=== PATIENT | female | born 1985 | race Caucasian/White ===

== ENCOUNTER 2024-05-13 22:06 | Emergency (ER) | payer OTHER ==
[~2024-05-13] VITALS: Ht 165.1 cm; Wt 79.0 kg
[2024-05-13] MEDS ORDERED: MAGNESIUM 4 G PREMIX 100 ML IV ONE (22:15)
[2024-05-13 22:37] LABS: BASOPHILS % 0.8 % (0.0-2.0); DIFFERENTIAL COMMENT 0; EOSINOPHILS % 1.5 % (0.0-5.0); HEMATOCRIT. 42.7 % (36.0-48.0); HEMOGLOBIN. 13.3 g/dL (12.0-16.0); LYMPHOCYTES % 38.4 % (20.0-50.0); MEAN CORPUSCULAR HEMOGLOBIN 31.5 pg (28.0-32.0); MEAN CORPUSCULAR HGB CONC 31.2 g/dL (31.0-37.0); MEAN PLATELET VOLUME 10.8 fl (7.4-10.4); MONOCYTES % 8.1 % (2.0-8.0); NEUTROPHILS % 51.2 % (40.0-76.0); PLATELET 313 x1000/uL (130-400); RED BLOOD CELL COUNT 4.22 mill/uL (4.2-5.4); RED CELL DISTRIBUTION WIDTH 13.9 % (11.6-14.6); WHITE BLOOD COUNT 27.4 x1000/uL (4.5-11.0)
[2024-05-13] MEDS: MAGNESIUM 4 G PREMIX 100 ML IV NR (22:42)
[2024-05-13] MEDS: SODIUM CHLORIDE 0.9% 1,000 ML IV ONE (22:42)
[2024-05-13 22:45] LABS: CHLORIDE 108 mEq/L (98-107); POTASSIUM 3.4 mEq/L (3.5-5.1); SODIUM 139 mEq/L (136-145)
[2024-05-13 22:47] LABS: CALCIUM 9.2 mg/dL (8.7-10.4)
[2024-05-13 22:51] LABS: CREATININE 1.4 mg/dL (0.6-1.0); GLUCOSE 184 mg/dL (70-105)
[2024-05-13 22:52] LABS: UREA NITROGEN BLOOD 20 mg/dL (9-23)
[2024-05-13 22:58] LABS: ETHANOL BLOOD < 10 mg/dL (<10)
[2024-05-13 23:00] VITALS: O2SAT 97
[2024-05-13 23:00] LABS: CARBON DIOXIDE < 10 mEq/L (21-32); TROPONIN I HIGH SENSITIVITY 40 ng/L (3.0-34)
[2024-05-13] MEDS: MAGNESIUM 20 G PREMIX (L & D) 500 ML IV NR (23:00)
[2024-05-13 23:05] LABS: BG BASE EXCESS -14.3 mmol/L (-2.0-3.0); BG CARBOXYHEMOGLOBIN 0.3 % (0.5-1.5); BG DEOXYHEMOGLOBIN 5.9 % (0.0-5.0); BG FRACTION INSPIRED OXYGEN 21; BG HCO3 ACT 11.7 mmol/L (21.0-28.0); BG METHEMOGLOBIN 0.1 % (0.5-1.5); BG OXYGEN SATURATION 94.1 % (94.0-98.0); BG OXYHEMOGLOBIN 93.7 % (94.0-98.0); BG PCO2 28.1 mmHg (32.0-45.0); BG PH 7.237 (7.350-7.450); BG PO2 85.1 mmHg (83.0-108.0); BG SAMPLE SITE LEFT RADIAL; BG TOTAL HEMOGLOBIN 10.9 g/dL (12.0-16.0); BG VENT MODE ROOM AIR
[2024-05-13 23:15] VITALS: TEMP 37.00296
[2024-05-13] MEDS: LABETALOL 5MG/ML 4ML INJ IV ONE (23:36)
[2024-05-13] MEDS: LABETALOL 5MG/ML 4ML INJ IV NR (23:37)
[2024-05-13] MEDS: AMMONIA INHALATION 1EA INH NR (23:38)
[2024-05-13 23:39] LABS: CLARITY URINE TURBID (CLEAR); COLOR URINE YELLOW (YELLOW); GLUCOSE URINE NEGATIVE (NEGATIVE); KETONES URINE NEGATIVE (NEGATIVE); LEUKOCYTE ESTERASE URINE NEGATIVE (NEGATIVE); NITRITE URINE NEGATIVE (NEGATIVE); OCCULT BLOOD URINE 3+ (NEGATIVE); PH URINE 5.5 (4.5-8.0); PROTEIN URINE 4+ (NEGATIVE); SPECIFIC GRAVITY URINE 1.034 (1.005-1.030); UROBILINOGEN URINE 0.2 E.U./dL (0.2-1.0)
[2024-05-13 23:49] LABS: *AMPHETAMINES SCREEN URINE NEGATIVE (NEGATIVE); *BARBITURATES SCREEN URINE NEGATIVE (NEGATIVE); *BENZODIAZEPINES SCREEN URINE PRESUMPTIVE POSITIVE (NEGATIVE); *COCAINE SCREEN URINE NEGATIVE (NEGATIVE); METHADONE URINE SCREEN NEGATIVE (NEGATIVE)
[2024-05-13 23:50] LABS: CANNABINOID URINE SCREEN NEGATIVE (NEGATIVE); ECSTASY MDMA SCREEN URINE NEGATIVE (NEGATIVE); OPIATES URINE SCREEN NEGATIVE (NEGATIVE); PHENCYCLIDINE URINE SCREEN NEGATIVE (NEGATIVE)
[2024-05-13 23:58] LABS: CHLORIDE 106 mEq/L (98-107); POTASSIUM 3.6 mEq/L (3.5-5.1); SODIUM 139 mEq/L (136-145)
[2024-05-13 23:59] LABS: CALCIUM 9.3 mg/dL (8.7-10.4)
[2024-05-14 00:04] LABS: CREATININE 1.3 mg/dL (0.6-1.0); GLUCOSE 175 mg/dL (70-105); UREA NITROGEN BLOOD 23 mg/dL (9-23)
[2024-05-14 00:05] LABS: ALANINE AMINOTRANSFERASE 21 IU/L (10-49); ALBUMIN 3.8 g/dL (3.2-4.8); ASPARTATE AMINOTRANSFERASE 45 IU/L (<34)
[2024-05-14 00:06] LABS: BILIRUBIN TOTAL 0.3 mg/dL (0.1-1.0); PROTEIN TOTAL 5.9 g/dL (6.0-8.3)
[2024-05-14 00:28] LABS: CARBON DIOXIDE < 10 mEq/L (21-32)
[2024-05-14 01:06] VITALS: BP 131/91; PULSE 92; RESP 18; O2SAT 98
[2024-05-14 05:13] LABS: BACTERIA URINE 3+; SQUAMOUS EPITHELIAL CELL URINE FEW /lpf (RARE/1+)
== END 2024-05-14 01:06 | disposition short-term general hospital (02) ==
LOC: ER 22:06
DX: O15.03 Eclampsia complicating pregnancy, third trimester (principal); O10.913 Unspecified pre-existing hypertension complicating pregnancy, third trimester; Z3A.34 34 weeks gestation of pregnancy; Z33.2 Encounter for elective termination of pregnancy; Z36.89 Encounter for other specified antenatal screening
CPT/HCPCS: 80053; 80305; 80048; 81003; 80320; 83735; 85025; 84484; 36415; 76815; 82805; 82375; 96365; 99291; 36600; J3475 ×2; J7030; Z7610; G0480